=== PATIENT | male | born 1955 | race African-American/Black ===

== ENCOUNTER 2019-01-30 11:23 | Emergency (ER) | payer MEDICARE, MEDICAID ==
[~2019-01-30] VITALS: Ht 175.3 cm; Wt 75.0 kg
[2019-01-30] MEDS ORDERED: SODIUM CHLORIDE 0.9% 1,000 ML IV ONE (11:56)
[2019-01-30] MEDS ORDERED: MORPHINE SULFATE 4 MG/ML CPJ (NOT FOR IM USE) IV STA (11:56)
[2019-01-30] MEDS ORDERED: ONDANSETRON HCL 4MG/2ML INJ IV STA (11:56)
[2019-01-30 12:47] LABS: BASOPHILS % 0.6 % (0.0-2.0); EOSINOPHILS % 1.8 % (0.0-5.0); HEMATOCRIT. 34.1 % (42.0-52.0); HEMOGLOBIN. 11.4 g/dL (14.0-18.0); LYMPHOCYTES % 23.1 % (20.0-50.0); MEAN CORPUSCULAR HEMOGLOBIN 32.1 pg (28.0-32.0); MONOCYTES % 10.1 % (2.0-8.0); NEUTROPHILS % 64.4 % (40.0-76.0); PLATELET 242 x1000/uL (130-400); RED BLOOD CELL COUNT 3.56 mill/uL (4.7-6.1)
[2019-01-30 12:51] LABS: CHLORIDE 107 mEq/L (98-107)
[2019-01-30] MEDS ORDERED: PHENYTOIN SODIUM EXTENDED 100MG CAPSULE PO ONE (13:15)
[2019-01-30] MEDS ORDERED: PHENYTOIN 100 MG/4 ML UDC PO ONE (13:15)
[2019-01-30] MEDS ORDERED: IBUPROFEN 600MG TABLET PO ONE (15:45)
[2019-01-30 16:46] VITALS: BP 146/86
== END 2019-01-30 16:47 | disposition home or self-care (01) ==
LOC: ER 11:23
DX: G40.909 Epilepsy, unspecified, not intractable, without status epilepticus (principal); M25.511 Pain in right shoulder; M54.5 Low back pain
CPT/HCPCS: 36415; 73030; 80053; 80185; 85025; 96374; 96375; 99284; J2270; J2405; J7030